=== PATIENT | female | born 1980 | race Caucasian/White ===

== ENCOUNTER 2022-05-29 11:29 | Observation (INO) | payer OTHER ==
[2022-05-29] MEDS ORDERED: ONDANSETRON ODT 4 MG TAB PO STA (19:35)
[2022-05-29] MEDS ORDERED: THIAMINE 100 MG/ML 2 ML VIAL IM STA (19:44)
[2022-05-29] MEDS ORDERED: LORazepam 2 MG/ML INJ IV PRN ×3 (19:44)
--- NOTE | 2022-05-29 19:47 | ED ---
General Adult HPI - General Chief complaint: Psychiatric Symptoms Stated complaint: Mental Health Time Seen by Provider: 05/29/22 14:02 Source: patient, family, RN notes reviewed, old records reviewed Mode of arrival: ambulatory Limitations: no limitations - History of Present Illness Initial comments: 21-year-old female was admitted to the emergency department with alcohol intoxication and suicidal thoughts. She denies a specific plan. She is requesting help for her daily use of alcohol. She states she has been more depressed lately. Patient is initially evaluated by the previous ER physician and was awaiting sobriety for EPS evaluation. - Related Data Home Medications Medication Instructions Recorded Confirmed Escitalopram [Lexapro] 10 mg PO DAILY 05/29/22 05/29/22 cloNIDine HCL [Catapres] 0.1 mg PO BID PRN 05/29/22 05/29/22 traZODone HCL [Desyrel] 50 mg PO HS 05/29/22 05/29/22 Allergies Allergy/AdvReac Type Severity Reaction Status Date / Time No Known Allergies Allergy Verified 05/29/22 15:26 Review of Systems ROS Statement: Those systems with pertinent positive or pertinent negative responses have been documented in the HPI. ROS Other: All systems not noted in ROS Statement are negative. Past Medical History Past Medical History: No Reported History History of Any Multi-Drug Resistant Organisms: None Reported Past Surgical History: No Surgical Hx Reported Past Psychological History: Depression Smoking Status: Never smoker Past Alcohol Use History: Occasional Past Drug Use History: None Reported General Exam Limitations: no limitations General appearance: alert, in distress (Anxious, tremulous) Head exam: Present: atraumatic, normocephalic Eye exam: Present: normal appearance, PERRL ENT exam: Present: mucous membranes dry Neck exam: Present: normal inspection. Absent: tenderness, meningismus Respiratory exam: Present: normal lung sounds bilaterally, respiratory distress Cardiovascular Exam: Present: normal rhythm, tachycardia GI/Abdominal exam: Present: soft. Absent: distended, tenderness Extremities exam: Present: normal inspection, normal capillary refill. Absent: pedal edema Neurological exam: Present: alert, oriented X3, CN II-XII intact. Absent: motor sensory deficit Psychiatric exam: Present: anxious, suicidal ideation Skin exam: Present: warm, dry, intact. Absent: cyanosis, diaphoretic Course Vital Signs 05/29/22 12:19 Temperature 97.5 F L Pulse Rate 104 H Respiratory 18 Rate Blood Pressure 136/95 O2 Sat by Pulse 96 Oximetry Medical Decision Making - Medical Decision Making Patient is initially evaluated by the previous ER physician and was awaiting sobriety for EPS evaluation. During this period of time the patient developed withdrawal symptoms and still has an alcohol level of 180. She will require medical management of withdrawal. IV will be established, laboratory studies will be obtained these results are pending. She will be admitted to [facility] with psychiatry placed on consult. Disposition Clinical Impression: Suicidal ideation, Depression, Alcohol intoxication, Alcohol withdrawal Disposition: ADMITTED IP TO THIS HOSP Condition: Stable Is patient prescribed a controlled substance at d/c from ED?: No Referrals: Clyde Pabon MD [Primary Care Provider] - 1-2 days Time of Disposition: 19:49
[2022-05-29] MEDS ORDERED: SODIUM CHLORIDE 0.9% 500 ML 500 ML IV ONE (19:48)
[2022-05-29] MEDS ORDERED: chlordiazePOXIDE 25 MG CAP PO PRN ×3 (19:49)
[2022-05-29] MEDS ORDERED: NALOXONE 0.4 MG/ML 1 ML VIAL IV PRN (19:49)
[2022-05-29] MEDS: chlordiazePOXIDE 25 MG CAP PO PRN (20:21)
[2022-05-29 21:03] LABS: Basophils % (A) 1 %; Eosinophils % (A) 1 %; HCT 46.3 % (34.0-46.0); Lymphocytes # (A) 0.9 k/uL (1.0-4.8); Lymphocytes % (A) 25 %; MCH 32.5 pg (25.0-35.0); MCHC 34.6 g/dL (31.0-37.0); MCV 93.9 fL (80.0-100.0); Mean Platelet Volume 6.7; Monocytes # (A) 0.3 k/uL (0-1.0); Monocytes % (A) 10 %; Neutrophils # (A) 2.1 k/uL (1.3-7.7); Neutrophils % (A) 61 %; Platelet Count 164 k/uL (150-450); RBC 4.93 m/uL (3.80-5.40); RDW 14.1 % (11.5-15.5); WBC 3.5 k/uL (3.8-10.6)
[2022-05-29] MEDS: THIAMINE 100 MG TAB PO SCH (21:06)
[2022-05-29 21:12] LABS: ALT 36 U/L (4-34); AST 64 U/L (14-36); African American GFR (CKD) >90 (>60 ml/min/1.73 sqM); Anion Gap 18 mmol/L; Blood Urea Nitrogen 7 mg/dL (7-17); Calcium 9.2 mg/dL (8.4-10.2); Carbon Dioxide 26 mmol/L (22-30); Chloride 95 mmol/L (98-107); Glucose 73 mg/dL (74-99); Non-African American GFR(CKD) >90 (>60 ml/min/1.73 sqM); Potassium 3.9 mmol/L (3.5-5.1); Sodium 139 mmol/L (137-145)
[2022-05-29 21:33] LABS: Alcohol 228 mg/dL
[2022-05-29] MEDS ORDERED: LORazepam 1 MG/0.5 ML VIAL IV STA (23:28)
[2022-05-29] MEDS: SODIUM CHLORIDE 0.9% 1,000 ML IV SCH (23:35)
[2022-05-30 00:27] LABS: Appearance,Urine Cloudy (Clear); Bacteria,Urine Many /hpf; Bilirubin,Urine Negative (Negative); Blood,Urine Trace (Negative); Color,Urine Yellow; Glucose,Urine (UA) Negative (Negative); Hyaline Casts,Urine 2 /lpf (0-2); Ketones,Urine 2+ (Negative); Leukocyte Esterase,Urine Large (Negative); Mucus,Urine Many /hpf; Nitrite,Urine Negative (Negative); Protein,Urine 1+ (Negative); RBC,Urine 1 /hpf (0-5); Specific Gravity,Urine 1.012 (1.001-1.035); Squamous Epithelial Cell,Urine 3 /hpf (0-4); Urobilinogen,Urine <2.0 mg/dL (<2.0); WBC,Urine 76 /hpf (0-5)
[2022-05-30 00:32] LABS: Amphetamine Screen,Urine Not Detected (NotDetected); Barbiturate Screen,Urine Not Detected (NotDetected); Benzodiazepines Screen,Urine Not Detected (NotDetected); Cocaine Screen,Urine Not Detected (NotDetected); Methadone Screen, Urine Not Detected (NotDetected); Opiate Screen,Urine Not Detected (NotDetected); Oxycodone Screen, Urine Not Detected (NotDetected); Phencyclidine Screen,Urine Not Detected (NotDetected); Tricyclic Antidepressant,Urine Not Detected (NotDetected); Urn Cannabinoid Scrn Not Detected (NotDetected)
--- NOTE | 2022-05-30 01:12 | P.HPIM ---
History of Present Illness H&P Date: 05/29/22 Chief Complaint: Alcohol detox 41-year-old female with history of Crohn's disease. Patient comes into the hospital seeking help for alcohol detox and suicidal ideation she's been going through hard time claims that multiple friends and family members has been going through a difficult time with multiple dark in her close [place] of friends and family led her to relapse after 8 years of sobriety. She's been drinking heavily for the past 6 weeks made her feel sick depressed and having suicidal thoughts she denies any history of suicide attempts she does admit to history of depression and anxiety she presented with for alcohol detox line upon presentation patient was slight to be intoxicated and was admitted for further care. Blood work over all unremarkable Patient also mentions some dysuria and UA came back as of with leukocyte esterases. Otherwise patient is any fevers chills back pain or abdominal pain denies any nausea vomiting or GI bleeding she does report history of alcohol withdrawal but denies any withdrawal seizures She denies any illicit drugs but does admit to smoking marijuana the other day and attempt of her to help her detox. Review of Systems Pertinent positives as noted in HPI. All other systems were reviewed and are negative Past Medical History Additional Past Medical History / Comment(s): Crohn's disease History of Any Multi-Drug Resistant Organisms: None Reported Past Surgical History: No Surgical Hx Reported Past Psychological History: Depression Smoking Status: Never smoker Past Alcohol Use History: Occasional Past Drug Use History: None Reported - Past Family History Family Family Medical History: No Reported History Medications and Allergies Home Medications Medication Instructions Recorded Confirmed Type Escitalopram [Lexapro] 10 mg PO DAILY 05/29/22 05/29/22 History cloNIDine HCL [Catapres] 0.1 mg PO BID PRN 05/29/22 05/29/22 History traZODone HCL [Desyrel] 50 mg PO HS 05/29/22 05/29/22 History Allergies Allergy/AdvReac Type Severity Reaction Status Date / Time No Known Allergies Allergy Verified 05/29/22 15:26 Physical Exam Vitals: Vital Signs Temp Pulse Resp BP Pulse Ox 05/29/22 20:15 97 18 141/77 96 05/29/22 12:19 97.5 F L 104 H 18 136/95 96 Intake and Output 06/30/22 06/30/22 06/30/22 06:59 14:59 22:59 Other: Weight 58.967 kg Constitutional: No acute distress, conversant, pleasant Eyes: Anicteric sclerae, moist conjunctiva, Pupils equal round reactive to light ENMT: NC/AT Oropharynx clear, no erythema, or exudates Neck: Supple, FROM, no masses, or JVD No carotid bruits No thyromegaly Lungs: Clear to auscultation Clear to percussion Normal respiratory effort, no accessory muscle use Cardiovascular: Heart regular in rate and rhythm, No murmurs, gallops, or rubs No peripheral edema Abdominal: Soft Nontender, no guarding, rebound or rigidity Abdomen moving with respiration Normoactive bowel sounds No hepatomegaly, No splenomegaly No palpable mass No abdominal wall hernia noted Skin: Normal temperature, tone, texture, turgor No induration No subcutaneous nodules No rash, lesions No ulcers Extremities: No digital cyanosis No clubbing Pedal pulses intact and symmetrical Radial pulses intact and symmetrical No calf tenderness Psychiatric: Alert and oriented to person, place and time Appropriate affect fair judgement Neuro Muscles Strength 5/5 in all 4 extremities Sensation to light touch grossly present throughout Cranial nerves II-XII grossly intact No focal sensory deficits Lymphatics: no palpable cervical or supraclavicular , or inguinal lymph nodes Results CBC & Chem 7: 05/29/22 20:51 05/29/22 20:51 Labs: Abnormal Lab Results - Last 24 Hours (Table) 05/29/22 05/29/22 Range/Units 20:51 20:51 WBC 3.5 L (3.8-10.6) k/uL Hct 46.3 H (34.0-46.0) % Lymphocytes # 0.9 L (1.0-4.8) k/uL Chloride 95 L (98-107) mmol/L Glucose 73 L (74-99) mg/dL AST 64 H (14-36) U/L ALT 36 H (4-34) U/L Serum Alcohol 228 H* mg/dL Assessment and Plan Assessment: Alcohol dependence and abuse Pending alcohol withdrawal Due to shortage of Ativan patient was placed on Librium Benzos per CIWA scale IV fluid hydration Thiamine Suicide precautions Psych evaluation UTI Follow-up culture was Initiated on Bactrim DVT prophylaxis heparin subcu 3 times a day Full code
[2022-05-30] MEDS: SULFAMETHOX-TMP 800-160MG 1 EACH TAB PO SCH ×2 (02:00→08:37)
[2022-05-30] MEDS: THIAMINE 100 MG TAB PO SCH ×2 (08:40→16:55)
[2022-05-30] MEDS: ONDANSETRON 4 MG/2 ML VIAL IVP PRN ×2 (09:28→18:49)
[2022-05-30] MEDS: chlordiazePOXIDE 25 MG CAP PO PRN (09:30)
[2022-05-30] MEDS ORDERED: LORazepam 1 MG TAB PO PRN (10:24)
--- NOTE | 2022-05-30 10:58 | P.CN ---
Psychiatric Consult - . Consult date: 05/30/22 Consult:: 05/30/22 10:26 IDENTIFYING DATA: This patient is a 41-year-old female with history of alcohol use, depression, currently lives with her boyfriend in a house, has 4 kids is . She works in a [employer] center. REASON FOR REFERRAL: Psychiatry was consulted for suicidal ideations and depression. HISTORY OF PRESENT ILLNESS: The patient presented to the hospital m and cooperative and not endorsing any suicidal thoughts to her today. Patient was with a one-to-one sitter at her side today. Patient was seen lying in the bed and agreeable automobile service writer. Patient states that she has "a lot going on at home" and endorsed several stressors including recently not getting paid from her job and potentially having lost it. She also states that she is in a custody [place] for her 3 kids with her ex-. She states that she is having financial problems as well. She also claims that there have been "3 deaths in the family in 1 week" and she is trying to cope with that. She states that her depression had been getting worse for the past 6 weeks. She states that she sees a psychiatrist virtually who prescribed her Lexapro trazodone and clonidine. She states that "she doubled it" and seems that patient was feeling worse afterwards. She states that she was feeling more depressed and started drinking again and quickly relapsed. She states that she was maintaining sobriety for quite some time before that. She states that she feels a bit better today however continues to endorse anxiety tremors and other withdrawal symptoms. She denies any withdrawal seizures in the past. She does appear shaky and anxious during conversation. He claims that her sleep has been "on and off" and appetite has been fair] . At this time patient denies any current suicidal or homical ideations, intent or plan. Patient denies any auditory, visual hallucinations and denies any paranoia or delusions. Patients admits to using alcohol daily approximately a fifth of vodka per day for the past several days. She states that her last drink was on the day of admission in the ER. She denies any cigarette use. She states that she smokes one joint of marijuana before she came in the hospital. She claimed that she has been to rehab before in [place] about 3 years ago. PAST PSYCHIATRIC HISTORY: Patient has a a history of depression and alcohol use.. Patient was previously on trazodone and Lexapro and clonidine before coming in the hospital. [Patient denies any previous psychiatric hospitalizations.] She claims that she currently follows up with a psychiatrist virtually. [Patient denies any history of suicide attempts in the past.] PAST MEDICAL HISTORY: As per medicine H&P.. ALLERGIES: as per EMR. CHEMICAL DEPENDENCY HISTORY: as per HPI. FAMILY PSYCHIATRIC/SUBSTANCE USE HISTORY: Claims that there is significant psychiatric history on "both sides" of her family however does not go into more detail. SOCIAL HISTORY: Patient was born and raised in [place] and also in [facility] [facility]. She states that she completed 3 years of college after high school. She states that she has 4 kids, lives with one of them and her boyfriend in a house. She states that she is . She currently works in a [employer] center. She claims that she did go to [facility] briefly after a DUI in 2010. MENTAL STATUS EXAM: General Appearance: Patient appears to be stated anxious/having tremors, age is alert, pleasant, and attempts to be cooperative. Patient appears to have [fair] hygiene and grooming wearing hospital gown with [fair] eye contact. Behavior: [Patient is calmly lying in bed without any agitated behavior.] [place] on upper extremities. Speech: Patient's speech is fluent and nonpressured. Mood/Affect: Patient reports their mood is "[depressed and anxious]", affect is congruent Suicidality/Homicidality: Patient denies having any suicidal or homicidal ideation intent or plan. Perceptions: Patient denies any visual hallucinations [and denies any auditory hallucinations] Though content/process: There is no evidence of any delusional thought content and thought process is linear and goal-directed. Memory and concentration: AOX3, grossly intact for the purposes of this session. Can spell "WORLD" backwards Judgment and insight: Fair IMPRESSIONS: Major depressive disorder, without psychotic features Alcohol use disorder, severe, currently in withdrawal PLAN: -At this time patient DOES NOT meet criteria for inpatient psychiatric admission. -Would recommend the following medication changes/additions: Librium 25 mg 3 times a day for alcohol withdrawal scheduled with plan to taper down over the course of her hospitalization. Agreeable to start naltrexone by mouth 50 mg daily for alcohol cravings, discontinued Lexapro and start Zoloft 50 mg daily for mood/anxiety. Agreeable to try trazodone 25 mg daily at bedtime for insomnia/mood. -CIWA protocol with PRN Ativan for alcohol withdrawal. Continue to monitor vital signs. -Can discontinue 1:1 sitter at this time as patient is not currently an imminent threat to themselves -Patient currently follows up with her outpatient psychiatrist virtually. She has a therapy appointment tonight virtually on her tablet. -d/c suicide precautions. 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 -She is declining rehab at this time and is already enrolled and has a sponsor in AA. -Communicated plan to patient's nurse -Will continue to follow along -Please contact with any questions. 05/30/22 10:57
[2022-05-30] MEDS: SODIUM CHLORIDE 0.9% 1,000 ML IV SCH (11:08)
[2022-05-30] MEDS: NALTREXONE HCL 50 MG TAB PO SCH (11:20)
[2022-05-30] MEDS: MULTIVITAMINS, THERA 1 EACH TAB PO SCH (11:20)
[2022-05-30] MEDS: chlordiazePOXIDE 25 MG CAP PO SCH ×3 (11:20→21:37)
[2022-05-30] MEDS: SERTRALINE 50 MG TAB PO SCH (11:20)
--- NOTE | 2022-05-30 13:54 | P.PN ---
Subjective Progress Note Date: 05/30/22 Chief Complaint: Alcohol detox 41-year-old female with history of Crohn's disease. Patient comes into the hospital seeking help for alcohol detox and suicidal ideation she's been going through hard time claims that multiple friends and family members has been going through a difficult time with multiple dark in her close [place] of friends and family led her to relapse after 8 years of sobriety. She's been drinking heavily for the past 6 weeks made her feel sick depressed and having suicidal thoughts she denies any history of suicide attempts she does admit to history of depression and anxiety she presented with for alcohol detox line upon presentation patient was slight to be intoxicated and was admitted for further care. Blood work over all unremarkable Patient also mentions some dysuria and UA came back as of with leukocyte esterases. Otherwise patient is any fevers chills back pain or abdominal pain denies any nausea vomiting or GI bleeding she does report history of alcohol withdrawal but denies any withdrawal seizures She denies any illicit drugs but does admit to smoking marijuana the other day and attempt of her to help her detox. Interval history: Patient was seen and examined at the bedside. She is very thin 3. She is complaining of mild tremors and shakes. She denies any chest pain or shortness breath. No acute reported changes overnight. Physical examination: General: non toxic, no distress, appears at stated age Derm: warm, dry Head: atraumatic, normocephalic, symmetric Eyes: EOMI, no lid lag, anicteric sclera Mouth: no lip lesion, mucus membranes moist Cardiovascular: S1S2 reg, no murmur, positive posterior tibial pulse bilateral, Lungs: CTA bilateral, no rhonchi, no rales , no accessory muscle use Abdom. Anxious inal: soft, nontender to palpation, no guarding, no appreciable organomegaly Ext: no gross muscle atrophy, no edema, no contractures Neuro: CN II-XI grossly intact, no focal neuro deficits Psych: Alert, oriented, appropriate affect Assessment and plan #Alcohol dependence with impending alcohol withdrawal -Patient was sober for 3 years and she relapsed 6 weeks ago -Benzos per CIWA scale -IV fluid hydration -Thiamine, folic acid and multivitamins #Major depressive disorder, without psychotic features -Patient denies any suicidal ideation -Patient on Zoloft and trazodone -Psychiatry following #Urinary tract infection -Pending urine culture result -Start Rocephin 1 g daily #DVT prophylaxis -subcutaneous Lovenox #Full code Objective - Vital Signs Vital signs: Vital Signs Temp 98.2 F 05/30/22 11:12 Pulse 92 05/30/22 11:12 Resp 16 05/30/22 11:12 BP 124/78 05/30/22 11:12 Pulse Ox 96 05/30/22 11:12 FiO2 Intake & Output 05/29/22 05/30/22 05/30/22 18:59 06:59 18:59 Intake Total 520 Balance 520 Weight 58.967 kg 58.967 kg Intake: Oral 520 Other: Voiding Method Toilet # Voids 2 - Labs CBC & Chem 7: 05/29/22 20:51 05/29/22 20:51 Labs: Abnormal Lab Results - Last 24 Hours (Table) 05/29/22 05/29/22 05/29/22 Range/Units 20:51 20:51 23:59 WBC 3.5 L (3.8-10.6) k/uL Hct 46.3 H (34.0-46.0) % Lymphocytes # 0.9 L (1.0-4.8) k/uL Chloride 95 L (98-107) mmol/L Glucose 73 L (74-99) mg/dL AST 64 H (14-36) U/L ALT 36 H (4-34) U/L Urine Appearance Cloudy H (Clear) Urine Protein 1+ H (Negative) Urine Ketones 2+ H (Negative) Urine Blood Trace H (Negative) Ur Leukocyte Esterase Large H (Negative) Urine WBC 76 H (0-5) /hpf Urine Bacteria Many H (None) /hpf Urine Mucus Many H (None) /hpf Serum Alcohol 228 H* mg/dL
[2022-05-30] MEDS: LORazepam 1 MG TAB PO PRN ×2 (14:03→18:53)
[2022-05-30 14:32] LABS: Basophils # (A) 0.1 k/uL (0-0.2); Basophils % (A) 2 %; Eosinophils % (A) 1 %; HCT 38.9 % (34.0-46.0); HGB 13.2 gm/dL (11.4-16.0); Lymphocytes # (A) 0.6 k/uL (1.0-4.8); Lymphocytes % (A) 15 %; MCH 31.3 pg (25.0-35.0); MCHC 33.8 g/dL (31.0-37.0); MCV 92.4 fL (80.0-100.0); Mean Platelet Volume 6.8; Monocytes # (A) 0.3 k/uL (0-1.0); Monocytes % (A) 8 %; Neutrophils % (A) 75 %; Platelet Count 113 k/uL (150-450); RBC 4.21 m/uL (3.80-5.40); RDW 13.5 % (11.5-15.5)
[2022-05-30 14:45] LABS: ALT 31 U/L (4-34); AST 62 U/L (14-36); African American GFR (CKD) >90 (>60 ml/min/1.73 sqM); Albumin 4.1 g/dL (3.5-5.0); Albumin/Globulin Ratio 1.5; Alkaline Phosphatase 42 U/L (38-126); Anion Gap 6 mmol/L; Blood Urea Nitrogen 9 mg/dL (7-17); Calcium 8.8 mg/dL (8.4-10.2); Carbon Dioxide 29 mmol/L (22-30); Chloride 99 mmol/L (98-107); Globulin 2.7 g/dL; Glucose 97 mg/dL (74-99); Non-African American GFR(CKD) >90 (>60 ml/min/1.73 sqM); Potassium 3.6 mmol/L (3.5-5.1); Sodium 134 mmol/L (137-145); Total Bilirubin 1.1 mg/dL (0.2-1.3); Total Protein 6.8 g/dL (6.3-8.2)
[2022-05-30] MEDS ORDERED: traZODone HCL 50 MG TAB PO SCH (21:00)
[2022-05-31] MEDS: SODIUM CHLORIDE 0.9% 1,000 ML IV SCH (04:35)
[2022-05-31] MEDS: NALTREXONE HCL 50 MG TAB PO SCH (08:31)
[2022-05-31] MEDS: SERTRALINE 50 MG TAB PO SCH (08:31)
[2022-05-31] MEDS: chlordiazePOXIDE 25 MG CAP PO SCH (08:32)
[2022-05-31] MEDS: MULTIVITAMINS, THERA 1 EACH TAB PO SCH (08:32)
[2022-05-31] MEDS: THIAMINE 100 MG TAB PO SCH (08:32)
[2022-05-31] MEDS ORDERED: ENOXAPARIN 40 MG/0.4 ML SYRINGE SQ SCH (09:00)
[2022-05-31 09:02] LABS: Basophils # (A) 0.02 X 10*3/uL (0.00-0.10); Basophils % (A) 0.7 %; Eosinophils # (A) 0.03 X 10*3/uL (0.04-0.35); Eosinophils % (A) 1.1 %; HCT 40.9 % (37.2-46.3); HGB 13.4 g/dL (12.0-15.0); Immature Grans, Automated 0.4 %; Lymphocytes # (A) 0.89 X 10*3/uL (0.90-5.00); Lymphocytes % (A) 32.2 %; MCH 30.4 pg (27.0-32.0); MCHC 32.8 g/dL (32.0-37.0); MCV 92.7 fL (80.0-97.0); Mean Platelet Volume 9.5 fL (9.5-12.2); Monocytes # (A) 0.39 X 10*3/uL (0.20-1.00); Monocytes % (A) 14.1 %; NRBC Per 100 WBC 0 /100 WBCS (0.0-0.0); Neutrophils # (A) 1.42 X 10*3/uL (1.80-7.70); Neutrophils % (A) 51.5 %; Platelet Count 102 X 10*3/uL (140-440); RBC 4.41 X 10*6/uL (4.10-5.20); RDW 13.1 % (11.5-14.5); WBC 2.76 X 10*3/uL (4.50-10.00)
[2022-05-31 09:12] LABS: African American GFR (CKD) 124.7 (60.0-200.0); Albumin 4.1 g/dL (3.8-4.9); Albumin/Globulin Ratio 1.78 (1.60-3.17); Anion Gap 15.4 mmol/L (10.00-18.00); BUN/Creat Ratio 9.57 Ratio (12.00-20.00); Blood Urea Nitrogen 6.7 mg/dL (9.0-27.0); Calcium 9.1 mg/dL (8.7-10.3); Carbon Dioxide 23.6 mmol/L (20.0-27.5); Globulin 2.3 g/dL (1.6-3.3); Magnesium 1.9 mg/dL (1.5-2.4); Non-African American GFR(CKD) 107.6 (60.0-200.0); Potassium 3.8 mmol/L (3.5-5.5); Total Bilirubin 0.7 mg/dL (0.30-1.20); Total Protein 6.4 g/dL (6.2-8.2)
[2022-05-31 12:39] VITALS: BP 133/78; PULSE 89; RESP 17; TEMP 98.2
--- NOTE | 2022-05-31 14:10 | P.DS ---
Providers Date of admission: 05/29/22 19:49 Expected date of discharge: 05/31/22 Attending physician: Obed De Guzman MD Consults: 05/29/22 19:49 Consult Physician Routine Consulting Provider: Cody Graves Consult Reason/Comments: EtOH, suicidal ideation Do you want consulting provider notified?: Already Contacted Primary care physician: Clyde Pabon MD Hospital Course: 41-year-old female with history of Crohn's disease. Patient comes into the hospital seeking help for alcohol detox and suicidal ideation she's been going through hard time claims that multiple friends and family members has been going through a difficult time with multiple dark in her close [place] of friends and family led her to relapse after 8 years of sobriety. She's been drinking heavily for the past 6 weeks made her feel sick depressed and having suicidal thoughts she denies any history of suicide attempts she does admit to history of depression and anxiety she presented with for alcohol detox line upon presentation patient was slight to be intoxicated and was admitted for further care. Blood work over all unremarkable Patient also mentions some dysuria and UA came back as of with leukocyte esterases. Otherwise patient is any fevers chills back pain or abdominal pain denies any nausea vomiting or GI bleeding she does report history of alcohol withdrawal but denies any withdrawal seizures She denies any illicit drugs but does admit to smoking marijuana the other day and attempt of her to help her detox. Physical examination: General: non toxic, no distress, appears at stated age Derm: warm, dry Head: atraumatic, normocephalic, symmetric Eyes: EOMI, no lid lag, anicteric sclera Mouth: no lip lesion, mucus membranes moist Cardiovascular: S1S2 reg, no murmur, positive posterior tibial pulse bilateral, Lungs: CTA bilateral, no rhonchi, no rales , no accessory muscle use Abdom. Anxious inal: soft, nontender to palpation, no guarding, no appreciable organomegaly Ext: no gross muscle atrophy, no edema, no contractures Neuro: CN II-XI grossly intact, no focal neuro deficits Psych: Alert, oriented, appropriate affect Hospital course in detail the problem list #Alcohol dependence with impending alcohol withdrawal -Patient was sober for 3 years and she relapsed 6 weeks ago -C score today is 5 -Patient wants to to be discharged today to go to rehab in [place]. Daughter at the bedside stated that she wants to take her mom to rehab today. -Patient was given a prescription for Librium 25 mg taper over the next 9 days -Status post IV fluid hydration -Thiamine, folic acid and multivitamins #Major depressive disorder, without psychotic features -Patient denies any suicidal ideation -Psychiatry cleared the patient for discharge -Per psychiatry patient was started on Zoloft Celexa discontinued per psych recommendation -Resume trazodone per psychiatry -Psychiatry following #Urinary tract infection -Pending urine culture result -Start Rocephin 1 g daily -Patient does not want to wait until the final urine culture result back -She was given prescription for Ceftin 500 mg twice daily for 5 days Patient Condition at Discharge: Stable Plan - Discharge Summary Discharge Rx Participant: No New Discharge Prescriptions: New Sertraline [Zoloft] 50 mg PO DAILY tab chlordiazePOXIDE HCl [Librium] See Taper PO TID #18 cap cefUROXime axetiL [Cefuroxime] 500 mg PO BID #10 tab Continue traZODone HCL [Desyrel] 50 mg PO HS cloNIDine HCL [Catapres] 0.1 mg PO BID PRN PRN Reason: Anxiety Discontinued Escitalopram [Lexapro] 10 mg PO DAILY Discharge Medication List cloNIDine HCL [Catapres] 0.1 mg PO BID PRN 05/29/22 [History] traZODone HCL [Desyrel] 50 mg PO HS 05/29/22 [History] Sertraline [Zoloft] 50 mg PO DAILY tab 05/31/22 [Rx] cefUROXime axetiL [Cefuroxime] 500 mg PO BID #10 tab 05/31/22 [Rx] chlordiazePOXIDE HCl [Librium] See Taper PO TID #18 cap 05/31/22 [Rx] Follow up Appointment(s)/Referral(s): Clyde Pabon MD [Primary Care Provider] - 1-2 days Discharge/Stand Alone Forms: AA Meetings [facility], Who Do I Call?, Community Resources, Outpatient Counseling, Inp Substance Abuse Facilities Discharge Disposition: HOME SELF-CARE
== END 2022-05-31 14:27 | disposition home or self-care (01) ==
LOC: EC 11:29 → 5NMEDONC 19:49
PROVIDERS: ADMIT Internal Medicine; ATTEND Internal Medicine
DX: F10.239 Alcohol dependence with withdrawal, unspecified (principal); F10.24 Alcohol dependence with alcohol-induced mood disorder; F32.9 Major depressive disorder, single episode, unspecified; R45.851 Suicidal ideations; F10.229 Alcohol dependence with intoxication, unspecified; N39.0 Urinary tract infection, site not specified; K50.90 Crohn's disease, unspecified, without complications; F41.9 Anxiety disorder, unspecified; Z79.899 Other long term (current) drug therapy; Y90.7 Blood alcohol level of 200-239 mg/100 ml
CPT/HCPCS: 96376; 96361 ×2; 96365; 96375 ×2; 82075; 96372; 99285; 80053 ×2; 80048; 83735 ×2; 84450; 84460; 85025 ×3; 81001; 80306; 87086; 87077; 87186; G0378 ×3; G0480; J2060; J3411; J2405; J0696 ×2; 80320

== ENCOUNTER 2022-06-08 14:49 | Observation (INO) | payer OTHER ==
[2022-06-08] MEDS ORDERED: MULTIVITAMINS, THERA 1 EACH TAB PO STA (15:00)
[2022-06-08] MEDS ORDERED: THIAMINE 100 MG/ML 2 ML VIAL IM STA (15:00)
--- NOTE | 2022-06-08 15:02 | ED ---
General Adult HPI - General Stated complaint: ETOH Time Seen by Provider: 06/08/22 14:51 Source: patient, EMS, RN notes reviewed Mode of arrival: EMS Limitations: no limitations - History of Present Illness Initial comments: Patient is a pleasant 41 female presenting to the emergency department concerns for alcohol intoxication. Patient states she wants to get off alcohol. Patient states her level prior to arrival was at 400. Patient does not recall drinking alcohol earlier however suspects that she may have. Patient denies head injury. Patient believes that alcohol is causing problems in her life. - Related Data Home Medications Medication Instructions Recorded Confirmed cloNIDine HCL [Catapres] 0.1 mg PO BID PRN 05/29/22 05/29/22 traZODone HCL [Desyrel] 50 mg PO HS 05/29/22 05/29/22 Previous Rx's Medication Instructions Recorded Sertraline [Zoloft] 50 mg PO DAILY tab 05/31/22 cefUROXime axetiL [Cefuroxime] 500 mg PO BID #10 tab 05/31/22 chlordiazePOXIDE HCl [Librium] See Taper PO TID #18 cap 05/31/22 Allergies Allergy/AdvReac Type Severity Reaction Status Date / Time No Known Allergies Allergy Verified 06/08/22 15:01 Review of Systems ROS Statement: Those systems with pertinent positive or pertinent negative responses have been documented in the HPI. ROS Other: All systems not noted in ROS Statement are negative. Constitutional: Denies: fever Eyes: Denies: eye pain ENT: Denies: ear pain Respiratory: Denies: cough Cardiovascular: Denies: chest pain Endocrine: Denies: fatigue Gastrointestinal: Denies: abdominal pain Genitourinary: Denies: dysuria Musculoskeletal: Denies: back pain Skin: Denies: rash Neurological: Denies: headache, weakness Past Medical History Past Medical History: No Reported History Additional Past Medical History / Comment(s): Crohn's disease History of Any Multi-Drug Resistant Organisms: None Reported Past Surgical History: No Surgical Hx Reported Past Anesthesia/Blood Transfusion Reactions: No Reported Reaction Past Psychological History: Depression Smoking Status: Never smoker Past Alcohol Use History: Occasional Past Drug Use History: None Reported - Past Family History Family Family Medical History: No Reported History General Exam Limitations: no limitations General appearance: alert, in no apparent distress Head exam: Present: atraumatic, normocephalic Eye exam: Present: normal appearance, PERRL, EOMI, nystagmus ENT exam: Present: normal oropharynx Neck exam: Present: normal inspection. Absent: tenderness Respiratory exam: Present: normal lung sounds bilaterally Cardiovascular Exam: Present: regular rate, normal rhythm GI/Abdominal exam: Present: soft. Absent: tenderness Extremities exam: Present: normal inspection Neurological exam: Present: alert Psychiatric exam: Present: normal affect, normal mood Skin exam: Present: normal color Course Vital Signs 06/08/22 14:52 Temperature 97.7 F Pulse Rate 67 Respiratory 18 Rate Blood Pressure 122/92 O2 Sat by Pulse 99 Oximetry Medical Decision Making - Medical Decision Making Patient was reevaluated. Dr. Escudero has been paged covering for hospital call Disposition Clinical Impression: Alcohol intoxication Disposition: ADMITTED IP TO THIS HOSP Is patient prescribed a controlled substance at d/c from ED?: No Referrals: Clyde Pabon MD [Primary Care Provider] - 1-2 days Time of Disposition: 15:28
[2022-06-08 15:29] LABS: Basophils # (A) 0.1 k/uL (0-0.2); Basophils % (A) 3 %; Eosinophils % (A) 1 %; HCT 41.1 % (34.0-46.0); HGB 13.6 gm/dL (11.4-16.0); Lymphocytes # (A) 1.5 k/uL (1.0-4.8); Lymphocytes % (A) 40 %; MCH 30.9 pg (25.0-35.0); MCV 93.7 fL (80.0-100.0); Mean Platelet Volume 6.4; Monocytes # (A) 0.3 k/uL (0-1.0); Monocytes % (A) 8 %; Neutrophils # (A) 1.6 k/uL (1.3-7.7); Neutrophils % (A) 46 %; Platelet Count 209 k/uL (150-450); RBC 4.39 m/uL (3.80-5.40); RDW 13.6 % (11.5-15.5); WBC 3.6 k/uL (3.8-10.6)
[2022-06-08] MEDS ORDERED: NALOXONE 0.4 MG/ML 1 ML VIAL IV PRN (15:29)
[2022-06-08] MEDS ORDERED: LORazepam 2 MG/ML INJ IV STA (15:29)
[2022-06-08 15:41] LABS: ALT 40 U/L (4-34); AST 77 U/L (14-36); African American GFR (CKD) >90 (>60 ml/min/1.73 sqM); Albumin 4.8 g/dL (3.5-5.0); Alkaline Phosphatase 51 U/L (38-126); Anion Gap 14 mmol/L; Blood Urea Nitrogen 11 mg/dL (7-17); Calcium 8.5 mg/dL (8.4-10.2); Carbon Dioxide 28 mmol/L (22-30); Chloride 103 mmol/L (98-107); Glucose 74 mg/dL (74-99); Magnesium 2.1 mg/dL (1.6-2.3); Non-African American GFR(CKD) >90 (>60 ml/min/1.73 sqM); Sodium 145 mmol/L (137-145); Total Bilirubin 0.8 mg/dL (0.2-1.3); Total Protein 8.2 g/dL (6.3-8.2)
[2022-06-08 15:58] LABS: Alcohol 401 mg/dL
--- NOTE | 2022-06-08 17:34 | P.HPIM ---
History of Present Illness H&P Date: 06/08/22 History of Presenting Illness: Patient is a 41-year-old female with a past medical history of Crohn's disease and alcohol abuse. She presented to the emergency department secondary to alcohol intoxication. Patient states that she drinks a fifth of vodka daily and needs help with detox and requesting assistance. Patient denies having any pain or complaints including headache, lightheadedness, dizziness, chest pain, palpitations, shortness of breath, abdominal pain, nausea, vomiting, changes in her bowel habits, or experiencing any numbness/tingling/weakness in her extrem ities. She denies having any recent injuries or falls. Patient states she came to the hospital because she wants help with stopping to drink alcohol. She denies nicotine use or use of any other drugs including marijuana. Patient underwent full evaluation in the emergency department. CBC revealed neutropenia with WBC count of 3.6. BMP was unremarkable. Liver profile revealed elevated AST of 77 and elevated ALT of 40. EtOH level of 401. Review of systems: Pertinent positives and negatives as discussed in HPI, a complete review of systems was performed and all other systems are negative. Physical exam: Vital signs reviewed and stable. General: Nontoxic, no distress and appears stated age. Derm: Skin warm and dry, normal coloration for ethnicity. Head: Atraumatic, normocephalic and symmetric. Eyes: EOMs intact, no lid lag, and anicteric sclera Mouth: no lip lesions, mucus membranes moist Cardiovascular: regular rate and rhythm with normal S1S2, no murmur, positive posterior tibial pulses bilaterally, and cap refill < 2 seconds. Lungs: Respirations even, regular, and unlabored on room air. Lungs CTA bilaterally, no rhonchi, no rales, no wheezing, and no accessory muscle usage. Abdominal: soft, nontender to palpation, no guarding, no appreciable organomegaly Ext: ROM intact. No gross muscle atrophy, no edema, no contractures Neuro: Speech clear, face symmetrical and CN II-XII grossly intact with no noted focal neuro deficits Psych: Alert and oriented to person, place, time, and situation. Appropriate and pleasant affect. Assessment and Plan of Care: Alcohol intoxication an active alcoholic Elevated liver enzymes secondary to above -CIWA Protocol with symptom triggered medication management with phenobarbital once urine hCG is completed with negative results -Continuous IV fluid hydration. -Thiamine 100 mg twice a day -Multivitamin daily -Folate 1 mg daily -Seizure, fall, aspiration, and elopement precautions in place. -Urine HCG to be obtained -Continued close monitoring of electrolytes and replace as needed. -Telemetry monitoring. Recent E. coli UTI -Patient to complete course of previously prescribed antibiotic, Ceftin. The patient is admitted with an anticipated less than 2 midnight stay for evaluation of alcohol intoxication CODE STATUS: Full code DVT prophylaxis: heparin Discussed with: patient and RN Anticipated discharge date: 1-[address]: : Home vs inpatient drug and alcohol rehabilitation programs such as [facility] A total of 44 minutes was spent on the care of this complex patient more than 50% of the time was spent in counseling and care coordination. Past Medical History Past Medical History: No Reported History Additional Past Medical History / Comment(s): Crohn's disease History of Any Multi-Drug Resistant Organisms: None Reported Past Surgical History: No Surgical Hx Reported Past Anesthesia/Blood Transfusion Reactions: No Reported Reaction Past Psychological History: Depression Smoking Status: Never smoker Past Alcohol Use History: Occasional Past Drug Use History: None Reported - Past Family History Family Family Medical History: No Reported History Medications and Allergies Home Medications Medication Instructions Recorded Confirmed Type cloNIDine HCL [Catapres] 0.1 mg PO BID PRN 05/29/22 06/08/22 History traZODone HCL [Desyrel] 50 mg PO HS 05/29/22 06/08/22 History Sertraline [Zoloft] 50 mg PO DAILY tab 05/31/22 06/08/22 Rx cefUROXime axetiL [Cefuroxime] 500 mg PO BID #10 tab 05/31/22 06/08/22 Rx chlordiazePOXIDE HCl [Librium] See Taper PO TID #18 cap 05/31/22 06/08/22 Rx Naltrexone HCl [Revia] 50 mg PO DAILY 06/08/22 06/08/22 History Allergies Allergy/AdvReac Type Severity Reaction Status Date / Time No Known Allergies Allergy Verified 06/08/22 16:01 Physical Exam Vitals: Vital Signs Temp Pulse Resp BP Pulse Ox 06/08/22 14:52 97.7 F 67 18 122/92 99 Intake and Output 06/08/22 06/08/22 06/08/22 06:59 14:59 22:59 Other: Weight 58.967 kg Results CBC & Chem 7: 06/08/22 15:10 06/08/22 15:10 Labs: Abnormal Lab Results - Last 24 Hours (Table) 06/08/22 06/08/22 Range/Units 15:10 15:10 WBC 3.6 L (3.8-10.6) k/uL AST 77 H (14-36) U/L ALT 40 H (4-34) U/L Serum Alcohol 401 H* mg/dL
[2022-06-08] MEDS: SODIUM CHLORIDE 0.9% 1,000 ML IV SCH (18:02)
[2022-06-08] MEDS: THIAMINE 100 MG TAB PO SCH (18:17)
[2022-06-08] MEDS ORDERED: LORazepam 1 MG TAB PO PRN (19:38)
[2022-06-08] MEDS: CEFDINIR 300 MG CAP PO SCH (20:33)
[2022-06-08] MEDS: HEPARIN SODIUM,PORCINE/PF 5,000 UNIT/0.5 ML SYRINGE SQ SCH (20:33)
[2022-06-08] MEDS: FAMOTIDINE 20 MG TAB PO SCH (20:33)
[2022-06-08] MEDS ORDERED: traZODone HCL 50 MG TAB PO SCH (21:00)
[2022-06-09] MEDS ORDERED: PHENobarbitaL 16.2 MG TAB PO ONE (03:30)
[2022-06-09 03:40] VITALS: TEMP 98.6
[2022-06-09] MEDS: SODIUM CHLORIDE 0.9% 1,000 ML IV SCH ×2 (04:25→11:17)
[2022-06-09] MEDS: THIAMINE 100 MG TAB PO SCH (08:05)
[2022-06-09] MEDS: FAMOTIDINE 20 MG TAB PO SCH (08:05)
[2022-06-09] MEDS: HEPARIN SODIUM,PORCINE/PF 5,000 UNIT/0.5 ML SYRINGE SQ SCH (08:05)
[2022-06-09] MEDS: CEFDINIR 300 MG CAP PO SCH (08:05)
[2022-06-09 08:48] VITALS: BP 113/68; PULSE 76; RESP 16
[2022-06-09] MEDS ORDERED: SERTRALINE 50 MG TAB PO SCH (09:00)
[2022-06-09] MEDS ORDERED: FOLIC ACID 1 MG TAB PO SCH (09:00)
[2022-06-09] MEDS ORDERED: NALTREXONE HCL 50 MG TAB PO SCH (09:00)
[2022-06-09 09:12] LABS: HCT 36.3 % (37.2-46.3); HGB 11.8 g/dL (12.0-15.0); MCHC 32.5 g/dL (32.0-37.0); MCV 92.4 fL (80.0-97.0); Mean Platelet Volume 8.4 fL (9.5-12.2); NRBC Per 100 WBC 0 /100 WBCS (0.0-0.0); Platelet Count 138 X 10*3/uL (140-440); RBC 3.93 X 10*6/uL (4.10-5.20); RDW 13.1 % (11.5-14.5); WBC 2.34 X 10*3/uL (4.50-10.00)
[2022-06-09 09:26] LABS: African American GFR (CKD) 133.1 (60.0-200.0); Albumin 3.8 g/dL (3.8-4.9); Albumin/Globulin Ratio 1.75 (1.60-3.17); BUN/Creat Ratio 14.55 Ratio (12.00-20.00); Blood Urea Nitrogen 8.4 mg/dL (9.0-27.0); Calcium 8.1 mg/dL (8.7-10.3); Carbon Dioxide 26.1 mmol/L (20.0-27.5); Globulin 2.2 g/dL (1.6-3.3); Magnesium 1.5 mg/dL (1.5-2.4); Non-African American GFR(CKD) 114.9 (60.0-200.0); Potassium 3.5 mmol/L (3.5-5.5); Total Bilirubin 0.3 mg/dL (0.30-1.20)
[2022-06-09 11:38] LABS: Prothrombin Time 10.8 sec (9.0-12.0)
[2022-06-09] MEDS ORDERED: MULTIVITAMINS, THERA 1 EACH TAB PO SCH (12:00)
--- NOTE | 2022-06-09 14:11 | P.DS ---
Providers Date of admission: 06/08/22 15:29 Expected date of discharge: 06/09/22 Attending physician: Bay Bonilla MD Primary care physician: Clyde Pabon MD Hospital Course: Discharge Diagnosis: Alcohol intoxication an active alcoholic, patient is clinically sober and has made arrangements to go to [facility] in [place] to begin her journey towards sobriety. Elevated liver enzymes secondary to above, improved but recommend repeat labs in 2-3 weeks upon discharge from rehabilitation center with results to be sent to PCP for follow-up and management Pancytopenia secondary to above, recommend repeat labs in 2-3 weeks upon discharge from rehabilitation center with results to be sent to PCP for follow- up and management. Recent E. coli UTI. Patient to complete course of previously prescribed antibiotic, Ceftin. Hospital Course: Patient is a 41-year-old female with a past medical history of Crohn's disease and alcohol abuse. She presented to the emergency department secondary to alcohol intoxication. Patient states that she drinks a fifth of vodka daily and needs help with detox and requesting assistance. Patient denies having any pain or complaints including headache, lightheadedness, dizziness, chest pain, palpitations, shortness of breath, abdominal pain, nausea, vomiting, changes in her bowel habits, or experiencing any numbness/tingling/weakness in her extremities. She denies having any recent injuries or falls. Patient states she came to the hospital because she wants help with stopping to drink alcohol. She denies nicotine use or use of any other drugs including marijuana. Patient underwent full evaluation in the emergency department. CBC revealed neutropenia with WBC count of 3.6. BMP was unremarkable. Liver profile revealed elevated AST of 77 and elevated ALT of 40. EtOH level of 401. Urine hCG was negative. Patient monitored overnight. She was seen and fully evaluated at bedside this morning. She reports feeling tired but otherwise denied having any complaints. CIWA score was 4. No signs of tremors or diaphoresis. Vital signs unremarkable. Blood pressure 113/68, heart rate 76, respiratory rate 16, temp 98.6F and SpO2 of 95% on room air. Morning labs reveal pancytopenia with WBC count of 2.34, hemoglobin 11.8, and platelet count of 138 likely reactive secondary to alcohol abuse. Liver profile showing improvement of liver enzymes with AST of 43. Patient has made arrangements to go to [facility] in [place] to begin her journey towards sobriety. Patient is medically stable at this time. Recommend repeat CBC and CMP with results to be sent to PCP along with outpatient follow-up and evaluation by PCP, Dr. Pabon, elizabeth rodrigues from [facility]. Physical exam: Vital signs reviewed and stable. General: Nontoxic, no distress and appears stated age. Derm: Skin warm and dry, normal coloration for ethnicity. Head: Atraumatic, normocephalic and symmetric. Eyes: EOMs intact, no lid lag, and anicteric sclera Mouth: no lip lesions, mucus membranes moist Cardiovascular: regular rate and rhythm with normal S1S2, no murmur, positive posterior tibial pulses bilaterally, and cap refill < 2 seconds. Lungs: Respirations even, regular, and unlabored on room air. Lungs CTA bilaterally, no rhonchi, no rales, no wheezing, and no accessory muscle usage. Abdominal: soft, nontender to palpation, no guarding, no appreciable organomegaly Ext: ROM intact. No gross muscle atrophy, no edema, no contractures Neuro: Speech clear, face symmetrical and CN II-XII grossly intact with no noted focal neuro deficits Psych: Alert and oriented to person, place, time, and situation. Appropriate and pleasant affect. A total of 34 minutes of time were spent preparing this complex discharge summary. Pt was discharged on 06/09/22 at 1:49 PM Patient Condition at Discharge: Stable Plan - Discharge Summary Discharge Rx Participant: No New Discharge Prescriptions: New Multivitamins, Thera [Multivitamin (formulary)] 1 each PO DAILY@1200 30 Days #30 tab Thiamine [Vitamin B-1] 100 mg PO BID@1200,1700 30 Days #60 tab Folic Acid 1 mg PO DAILY 30 Days #30 tab Continue traZODone HCL [Desyrel] 50 mg PO HS cloNIDine HCL [Catapres] 0.1 mg PO BID PRN PRN Reason: Anxiety Sertraline [Zoloft] 50 mg PO DAILY tab Naltrexone HCl [Revia] 50 mg PO DAILY chlordiazePOXIDE HCl [Librium] See Taper PO TID #18 cap cefUROXime axetiL [Ceftin] 500 mg PO BID #10 tab Discharge Medication List cloNIDine HCL [Catapres] 0.1 mg PO BID PRN 05/29/22 [History] traZODone HCL [Desyrel] 50 mg PO HS 05/29/22 [History] Sertraline [Zoloft] 50 mg PO DAILY tab 05/31/22 [Rx] cefUROXime axetiL [Ceftin] 500 mg PO BID #10 tab 05/31/22 [Rx] chlordiazePOXIDE HCl [Librium] See Taper PO TID #18 cap 05/31/22 [Rx] Naltrexone HCl [Revia] 50 mg PO DAILY 06/08/22 [History] Folic Acid 1 mg PO DAILY 30 Days #30 tab 06/09/22 [Rx] Multivitamins, Thera [Multivitamin (formulary)] 1 each PO DAILY@1200 30 Days #30 tab 06/09/22 [Rx] Thiamine [Vitamin B-1] 100 mg PO BID@1200,1700 30 Days #60 tab 06/09/22 [Rx] Follow up Appointment(s)/Referral(s): Clyde Pabon MD [Primary Care Provider] - 1-2 days Ambulatory/Diagnostic Orders: Complete Blood Count w/diff [LAB.AMB] Time Frame: 2 Weeks, Location: None Selected Comprehensive Metabolic Panel [LAB.AMB] Time Frame: 2 Weeks, Location: None Selected Patient Instructions/Handouts: Alcohol Intoxication (DC), Abuse of Alcohol (DC), Alcohol Withdrawal (DC) Activity/Diet/Wound Care/Special Instructions: Activity: As tolerated. Take breaks as needed. Diet: Heart healthy and carb consistent diet. Special Instructions: Take all of your medications as directed and remember to keep all of your doctor's appointments and follow-up as needed. Avoid all alcoholic beverages. Good luck on your journey towards sobriety at [facility]!! Remember, as we discussed it may be a long journey but definitely well worth every bit of it! Thank you for allowing us to participate in your care, it was truly a pleasure having you for our patient!!! Discharge/Stand Alone Forms: AA Jennifer Gao, Outpatient Counseling, Inp Substance Abuse Facilities, Personal [facility] [facility] Discharge Disposition: HOME SELF-CARE
== END 2022-06-09 15:13 | disposition home or self-care (01) ==
LOC: EC 14:49 → 6NMEDSUR 15:29
PROVIDERS: ADMIT Internal Medicine; ATTEND Internal Medicine
DX: F10.229 Alcohol dependence with intoxication, unspecified (principal); D61.818 Other pancytopenia; K50.90 Crohn's disease, unspecified, without complications; R74.01 Elevation of levels of liver transaminase levels; F32.A Depression, unspecified; N39.0 Urinary tract infection, site not specified; B96.20 Unspecified Escherichia coli [E. coli] as the cause of diseases classified elsewhere; Z79.899 Other long term (current) drug therapy; Y90.8 Blood alcohol level of 240 mg/100 ml or more
CPT/HCPCS: 96360; 96361; 96372 ×3; 82075; 99285; 36415; 80053 ×2; 83735 ×2; 85025; 85027; 85610; 81025; G0378 ×2; G0480; J3411; J1644 ×2; 80320